=== PATIENT | male | born 1955 | race Two or more races ===

== ENCOUNTER → 2017-04-08 | Outpatient (REF) | payer OTHER | LOC: M SMT 17:13 | PROVIDERS: ATTEND Nurse Practitioner Women's Health | DX: R97.20 Elevated prostate specific antigen [PSA] (principal) ==

== ENCOUNTER → 2017-04-17 | Outpatient (CLI) | payer OTHER ==
--- NOTE | 2017-04-17 11:15 | REP ---
Prostate sonography: History: Elevated PSA. Sonographic findings: Trans rectal prostate sonography demonstrates unremarkable seminal vesicles. Prostate gland is heterogeneously enlarged with calcifications and cystic changes noted. Glandular dimensions are measured at 4.8 x 4.4 x 4.6 cm with a calculated glandular volume of 50.1 ml. There is a 1.1 cm nodule and a 0.8 cm nodule to the right of midline in the prostate. Transrectal sonographic guidance provided to Dr. Mejias who performed trans rectal ultrasound guided needle biopsy procedure . Signed by Harsha Lozada MD 04/17/2017 11:06 A
== END ==
LOC: M SMT PRO 08:54
PROVIDERS: ATTEND Urology
DX: R97.20 Elevated prostate specific antigen [PSA] (principal)
CPT/HCPCS: 76872; 76942; G0416

== ENCOUNTER → 2018-08-12 | Outpatient (CLI) | payer OTHER ==
[2018-08-12 17:36] LABS: PROSTATIC SPECIFIC AG MONITOR 4.4 NG/ML (< 4.0)
== END ==
LOC: M SMT 13:52
DX: R97.20 Elevated prostate specific antigen [PSA] (principal)
CPT/HCPCS: 84153

== ENCOUNTER → 2024-03-30 | Outpatient (CLI) | payer MEDICAID, MEDICARE, OTHER ==
[2024-04-01 14:44] LABS: ANGIOTENSIN 1 CONVERTING ENZYM 34 U/L (9-67)
[2024-04-05 18:18] LABS: ACETYLCHOLINE RCPTOR BLOCK AB < 15 (<15)
[2024-04-06 17:09] LABS: ACETYLCHOLINE RCPTOR BINDING A < 0.30 nmol/L (<=0.30)
[2024-04-11 23:17] LABS: STRIATED MUSCLE AB SCREEN NEGATIVE (NEGATIVE)
== END ==
LOC: M PLALAB 14:16
PROVIDERS: ATTEND Psychiatry & Neurology Neurology
DX: G70.00 Myasthenia gravis without (acute) exacerbation (principal)

== ENCOUNTER → 2025-05-02 | Outpatient (CLI) | payer MEDICARE ==
[~2025-05-02] MED LIST: PROHANCE 279.3MG/ML 15ML VIAL ONE; PROHANCE 279.3MG/ML 5ML VIAL ONE
== END ==
LOC: M PLAIMG 13:10
PROVIDERS: ATTEND Physician Assistant
DX: R97.20 Elevated prostate specific antigen [PSA] (principal); N40.0 Benign prostatic hyperplasia without lower urinary tract symptoms
CPT/HCPCS: 72197; A9576